=== PATIENT | male | born 1970 | race Caucasian/White ===

== ENCOUNTER 2020-01-08 10:24 | Emergency (ER) | payer OTHER ==
[~2020-01-08] VITALS: Ht 170.2 cm; Wt 72.6 kg
[2020-01-08 11:12] VITALS: BP 141/90
[2020-01-08] MEDS ORDERED: KETOROLAC TROMETH 60MG/2ML VIAL IM ONE (11:15)
== END 2020-01-08 12:16 | disposition home or self-care (01) ==
LOC: ER 10:24
DX: M51.17 Intervertebral disc disorders with radiculopathy, lumbosacral region (principal); G89.29 Other chronic pain
CPT/HCPCS: 72131; 96372; 99284; J1885

== ENCOUNTER 2021-04-30 13:04 | Inpatient (IN) | payer OTHER ==
[~2021-04-30] VITALS: Ht 170.2 cm; Wt 78.6 kg
[2021-04-30] MEDS ORDERED: ASPirin 81 mg TAB PO ONE ×3 (13:45→14:45)
[2021-04-30 13:48] LABS: Basophils # (auto) 0 10 ^3/uL (0-0.2); Basophils % (auto) 0.5 % (0.0-2.0); Eosinophils # (auto) 0.2 10 ^3/uL (0-0.8); Eosinophils % (auto) 2.1 % (0.0-7.0); Hematocrit 45.7 % (41.0-53.0); Hemoglobin 15.8 g/dL (13.5-17.5); Lymphocytes # (auto) 2.4 10 ^3/uL (0.4-5.4); Lymphocytes % (auto) 24.8 % (10.0-50.0); Mean Corpuscular Hemoglobin 33.7 pg (28.0-32.0); Mean Corpuscular Hgb Conc. 34.6 g/dL (32.0-36.0); Mean Corpuscular Volume 97.4 fL (80.0-100.0); Monocytes # (auto) 0.8 10 ^3/uL (0-1.3); Monocytes % (auto) 8.3 % (0.0-12.0); Neutrophils # (auto) 6.2 10 ^3/uL (1.6-8.6); Neutrophils % (auto) 64.3 % (37.0-80.0); Nucleated Red Blood Cells % 0.1 %; Red Cell Distribution Width 12.9 % (11.8-14.3); White Blood Cell 9.6 10^3/uL (4.4-10.8)
[2021-04-30 14:00] LABS: Calcium 8.6 mg/dL (8.5-10.1); Potassium 4.3 mmol/L (3.5-5.1)
[2021-04-30 14:09] LABS: Albumin 3.8 g/dL (3.4-5.0); BUN/Creatinine Ratio 7.3; Bilirubin, Total 0.6 mg/dL (0.2-1.0); Total Protein 7.2 g/dL (6.4-8.2)
[2021-04-30] MEDS ORDERED: MORPHINE SULFATE 4 MG/ML SYR/VIAL IV ONE (14:30)
[2021-04-30] MEDS ORDERED: ONDANSETRON HCL 4 MG/2 ML VIAL IV ONE (14:30)
[2021-04-30] MEDS ORDERED: HEPARIN 1,000 UNITS/ml 1ML VIAL IV ONE (14:30)
[2021-04-30] MEDS ORDERED: HEPARIN 1,000 UNITS/ml 1ML VIAL ONE (14:33)
[2021-04-30] MEDS ORDERED: HEPARIN SODIUM (PORCINE) 5000 UNITS/ML 1ML VIAL IV ONE (14:45)
[2021-04-30 14:58] LABS: INR 0.95 (0.9-1.15); Partial Thromboplastin Time 27.1 sec (23.0-31.2)
[2021-04-30] MEDS ORDERED: MORPHINE SULF INJ 2 MG/ML SYRINGE 1ML IV PRN ×3 (15:00→23:30)
[2021-04-30] MEDS ORDERED: LACTATED RINGER'S 1,000 ML IV ONE (15:00)
[2021-04-30] MEDS ORDERED: ENOXAPARIN SOD 100 MG/1 ML SYRINGE SC SCH (15:00)
[2021-04-30] MEDS ORDERED: NITROGLYCERIN 0.4 MG SL TAB SL PRN ×2 (15:00→23:30)
[2021-04-30] MEDS ORDERED: IODIXANOL 320MG/ML 100ML BTL IV ONE (16:33)
[2021-04-30] MEDS ORDERED: LIDOCAINE 2%HCL (LOCAL ANESTH.) INJ 20ML MDV ONE (16:33)
[2021-04-30] MEDS ORDERED: HEPARIN SODIUM (PORCINE) 5000 UNITS/ML 1ML VIAL ONE (16:34)
[2021-04-30] MEDS ORDERED: VERAPAMIL 2.5MG/ML INJ 2ML VIAL IV ONE (16:34)
[2021-04-30] MEDS ORDERED: ANGIOMAX 250 MG VIAL IV ONE (16:34)
[2021-04-30] MEDS ORDERED: SODIUM CHL 0.9% 50 ML ONE (16:35)
[2021-04-30] MEDS ORDERED: MIDAZOLAM HCL 1MG/1ML-2 ML VIAL ONE (16:35)
[2021-04-30] MEDS ORDERED: fentaNYL CITRATE 100 MCG/2 ML VL ONE (16:35)
[2021-04-30] MEDS ORDERED: ATROPINE SULF 1 MG/10ml SYR ONE (17:10)
[2021-04-30] MEDS ORDERED: EPINEPHrine HCL 1 MG/10 ML SYRG ONE (17:10)
[2021-04-30] MEDS ORDERED: TICAGRELOR 90 MG TAB ONE (17:13)
[2021-04-30] MEDS ORDERED: ACETAMINOPHEN 500 MG TAB PO PRN (18:00)
[2021-04-30] MEDS ORDERED: HYDROcodone-ACET 5/325MG TAB PO PRN ×2 (18:00→23:30)
[2021-04-30 19:50] VITALS: BP 106/69
[2021-04-30 22:00] VITALS: BP 106/69
[2021-04-30] MEDS ORDERED: ATORVASTATIN 20 MG TAB PO SCH (22:00)
[2021-04-30] MEDS ORDERED: ALUM & MAG HYDROX-SIMETH LIQ(MAALOX) 30 ML PO PRN (23:30)
[2021-04-30] MEDS ORDERED: METOCLOPRAMIDE HCL 5MG/ml INJ 2ml VIAL IV PRN (23:30)
[2021-04-30] MEDS ORDERED: SODIUM CHLORIDE 0.9% 1,000 ML IV SCH (23:30)
[2021-04-30] MEDS ORDERED: DOCUSATE SOD 100 MG CAP PO PRN (23:30)
[2021-04-30] MEDS ORDERED: ACETAMINOPHEN 325 MG TAB PO PRN (23:30)
[2021-04-30] MEDS ORDERED: LORazepam 0.5 MG TAB PO PRN (23:30)
[2021-05-01 05:24] VITALS: BP 95/62
[2021-05-01 07:33] LABS: Urine WBC None Seen /hpf (0 - 3)
[2021-05-01 07:48] LABS: Cholesterol 203 mg/dL (< 200); HDL Cholesterol 35 mg/dL (40-59); LDL Cholesterol 142 mg/dL (< 100); Triglycerides 156 mg/dL (< 150)
[2021-05-01 07:51] LABS: Urine Bacteria NONE SEEN /hpf (None Seen); Urine Blood Negative /uL (Negative); Urine Specific Gravity 1.017 (1.001-1.035)
[2021-05-01 08:03] LABS: Alcohol, Urine < 3.0 mg/dL (0-10); Amphetamine Screen, Urine NEGATIVE (NEGATIVE); Barbiturate Scree,Urine NEGATIVE (NEGATIVE); Benzodiazephine Screen, Urine POSITIVE (NEGATIVE); Cannabinoid Screen, Urine NEGATIVE (NEGATIVE); Cocaine Screen, Urine NEGATIVE (NEGATIVE); Opiate Scree,Urine NEGATIVE (NEGATIVE); Phencyclidine Screen, Urine NEGATIVE (NEGATIVE)
[2021-05-01 09:00] VITALS: BP 100/63
[2021-05-01] MEDS ORDERED: ASPirin 81 mg TAB PO SCH (10:00)
[2021-05-01] MEDS ORDERED: METOPROLOL SUCCINATE XL 50 MG TAB PO SCH (10:00)
[2021-05-01] MEDS ORDERED: [UNRECOGNIZED DRUG - OTHER] IV SCH (10:00)
[2021-05-01] MEDS ORDERED: TICAGRELOR 90 MG TAB PO SCH (10:00)
[2021-05-01 12:54] VITALS: BP 104/64
[2021-05-01 14:00] VITALS: BP 100/63
== END 2021-05-01 14:30 | disposition home or self-care (01) | DRG 246 ==
LOC: ER 13:04 → TELE 14:57 → TELE-EAST 16:50
PROVIDERS: ADMIT Hospitalist; ATTEND Hospitalist
PROC: 027135Z Dilation of Coronary Artery, Two Arteries with Two Drug-eluting Intraluminal Devices, Percutaneous Approach (ICD-10-PCS; principal; 2021-04-30)
PROC: 4A023N7 Measurement of Cardiac Sampling and Pressure, Left Heart, Percutaneous Approach (ICD-10-PCS; 2021-04-30)
PROC: B215YZZ Fluoroscopy of Left Heart using Other Contrast (ICD-10-PCS; 2021-04-30)
PROC: B211YZZ Fluoroscopy of Multiple Coronary Arteries using Other Contrast (ICD-10-PCS; 2021-04-30)
DX: I21.4 Non-ST elevation (NSTEMI) myocardial infarction (principal); I50.21 Acute systolic (congestive) heart failure; I25.10 Atherosclerotic heart disease of native coronary artery without angina pectoris; I25.5 Ischemic cardiomyopathy; Z82.49 Family history of ischemic heart disease and other diseases of the circulatory system; F17.210 Nicotine dependence, cigarettes, uncomplicated; I10 Essential (primary) hypertension; E78.5 Hyperlipidemia, unspecified; E78.00 Pure hypercholesterolemia, unspecified; Z95.5 Presence of coronary angioplasty implant and graft; E66.01 Morbid (severe) obesity due to excess calories; Z68.27 Body mass index [BMI] 27.0-27.9, adult; Z71.6 Tobacco abuse counseling; Z20.822 Contact with and (suspected) exposure to COVID-19; R11.2 Nausea with vomiting, unspecified; R79.89 Other specified abnormal findings of blood chemistry
CPT/HCPCS: 36415; 71046; 80053; 80061; 80307; 81001; 83036; 83735; 84484; 85025; 85049; 85610; 85730; 86850; 86900; 86901; 87040; 87086; 87426; 92928; 93005; 93306; 93458; 96361; 96374; 96375; 99152; 99153; 99291; C1874; G0378; J2250; J2405; Q9967